=== PATIENT | female | born 1970 | race Caucasian/White ===

== ENCOUNTER 2018-07-22 08:14 | Day surgery (SDC) | payer OTHER ==
--- NOTE | 2018-07-21 13:41 | PREOPHP ---
DATE OF ADMISSION: 07/22/2018 HISTORY OF PRESENT ILLNESS: A 48-year-old female patient with a long history of recurrent middle ear infections seen in the office in 01/2018 and was noted to have cerumen impactions. These were remov ed. Bilateral otorrhea was noted at this time consistent with bilateral tympanic membrane perforatio n with possible cholesteatoma. The patient was treated with ear drops with resolution of otorrhea. Audiogram demonstrates bilateral conductive hearing loss. CAT scan of the temporal bones indicates p ossible cholesteatoma. The patient was now admitted to the hospital for corrective left ear surgery. MEDICATIONS: Metformin. MEDICAL CONDITIONS: Diabetes. ALLERGIES: NONE. PRIOR SURGERY: section. CHRONIC DISORDERS: None. HABITS: Alcohol, tobacco, recreational drugs: None. FAMILY HISTORY: Negative. REVIEW OF SYSTEMS: Negative. PHYSICAL EXAMINATION: GENERAL: Well-developed, well-nourished female patient in no acute distress. HEENT: Head is normocephalic. No masses or deformities. Ears and tympanic membranes: Bilateral att ic retraction, cholesteatomas noted. Nose is clear. Oropharynx is clear. NECK: No masses or adenopathy. CHEST: Clear to P and A. HEART: Regular sinus rhythm without murmur. ABDOMEN: Soft. Bowel sounds are normal. No masses or megaly. EXTREMITIES: Full range of motion without deformity. NEUROLOGIC: Physiologic. PELVIC AND RECTAL: Not done. IMPRESSION: Chronic left otitis media with probable cholesteatoma. RECOMMENDATIONS: Admit for surgery. The risks, alternatives and expectations of surgery have been d iscussed with the patient including the possibilities of further hearing loss, facial nerve injury, v ertigo and the possible need for revision surgery. Dictated By: NOLVIA FLORES MD [place]/NTS Conf#: [id number] DID#: [id number]
[2018-07-22] VITALS (9 sets, daily range): BP systolic 104–129; BP diastolic 60–69; PULSE 60–74; RESP 12–18; Ht 165.1 cm; Wt 104.6 kg
[~2018-07-22] VITALS: Ht 165.1 cm; Wt 104.6 kg
[2018-07-22] MEDS ORDERED: SIMV40TA2 PO (09:35)
[2018-07-22] MEDS ORDERED: METF500T24 PO (09:35)
[2018-07-22] MEDS ORDERED: PANT40TA3 PO (09:36)
[2018-07-22] MEDS ORDERED: SEVOFLURANE 15 MIN ONE (10:00)
[2018-07-22] MEDS ORDERED: GLYCOPYRROLATE 0.4 MG INJ ONE ×2 (10:00→11:21)
--- NOTE | 2018-07-22 10:15 | PREAC ---
Date/Time of Note Date/Time of Note DATE: 07/22/18 TIME: 10:14 Anesthesia Eval and Record Evaluation Time Pre-Procedure Interview DATE: 07/22/18 TIME: 10:14 Age 48 Sex female NPO: 8 hrs Preoperative diagnosis left mastoiditis, left perforated ear drum Planned procedure left mastoidectomy, left tympanoplasty Past Medical History Past Medical History: Includes Endo: Diabetes GI: Obesity Surgery & Anesthesia Issues No known issue Meds Anticoagulation: No Beta Tal within 24 hr: No Reason Beta Tal not given: Pt. not on B-Tal Reported Medications Pantoprazole* (Protonix*) 40 Mg Tablet.dr, 40 MG PO DAILY, TAB 07/22/18 Simvastatin* (Zocor*) 40 Mg Tablet, 40 MG PO QHS, #30 TAB 07/22/18 Metformin Hcl* (Metformin Hcl*) 500 Mg Tablet, 500 MG PO WITH BREAKFAST DINNE, #60 TAB 07/22/18 Meds reviewed: Yes Allergies Coded Allergies: No Known Allergy (Unverified , 07/22/18) Allergies Reviewed: Yes Labs/Studies Labs Reviewed: Reviewed by anesthesiologist test: Negative Pre-procedure Exam Last vitals Vital Signs Date Temp Pulse Resp B/P (MAP) Pulse Ox O2 O2 Flow FiO2 Time Delivery Rate 07/22/18 97.8 74 16 129/ 98 09:00 Airway: Adequate mouth opening, Adequate thyromental dist Mallampati: Mallampati II Teeth: Normal Lung: Normal Heart: Normal ASA Physical Status ASA physical status: 2 Emergency: None Planned Anesthetic General/MAC: LMA Planned Pain Management Parenteral pain med Pre-operative Attestations Prior to commencing anesthesia and surgery, the patient was re-evaluated, there was verification of: *The patient's identity *The results of appropriate recent lab work and preoperative vital signs *The above evaluation not changing prior to induction *Anesthetic plan, risk benefits, alternative and complications discussed with patient/family; questions answered; patient/family understands, accepts and wishes to proceed. TERA BROWN Jul 22, 2018 10:15
[2018-07-22] MEDS ORDERED: ROCURONIUM 50 MG INJ ONE (10:18)
[2018-07-22] MEDS ORDERED: PROPOFOL 100 ML ONE (10:18)
[2018-07-22] MEDS ORDERED: LIDOCAINE 1%/EPI (1:100,000) (MDV) 20 ML ONE (10:20)
[2018-07-22] MEDS ORDERED: NEOMYC/POLYMYX/BACIT 30 GM OINT ONE (10:20)
[2018-07-22] MEDS ORDERED: DEXAMETHASONE 4 MG/ML 5 ML INJ ONE (10:49)
[2018-07-22] MEDS ORDERED: ONDANSETRON 4 MG INJ ONE (10:49)
[2018-07-22] MEDS ORDERED: EPINEPHrine 1 MG INJ ONE (10:57)
[2018-07-22] MEDS ORDERED: GELATIN SIZE 100 SPONGE ONE (11:05)
[2018-07-22] MEDS ORDERED: NEOSTIGMINE 10 MG INJ ONE (11:21)
--- NOTE | 2018-07-22 11:37 | SIPON ---
Date/Time of Note Date/Time of Note DATE: 07/22/18 TIME: 11:36 Operative Report Preoperative Diagnosis chronic l mastoid Postoperative Diagnosis same Operation/Procedure Performed l mastoid tymp Surgeon marianne signature line appeals assistant none Anesthesia: general Estimated blood loss: minimal Transfusion Required none Specimen none Grafts/Implants none Complications none NOLVIA FLORES MD Jul 22, 2018 11:37
--- NOTE | 2018-07-22 11:40 | PAC ---
Date/Time of Note Date/Time of Note DATE: 07/22/18 TIME: 11:40 Post-Anesthesia Notes Post-Anesthesia Note Last documented vital signs Vital Signs Date Temp Pulse Resp B/P (MAP) Pulse Ox O2 O2 Flow FiO2 Time Delivery Rate 07/22/18 97.8 74 16 129/ 98 1142 Activity: WNL Respiratory function: WNL Cardiovascular function: WNL Mental status: Baseline Pain reasonably controlled: Yes Hydration appropriate: Yes Nausea/Vomiting absent: Yes TERA BROWN Jul 22, 2018 11:40
[2018-07-22] MEDS ORDERED: HYDROmorphONE 1 MG/5 ML IV SYRINGE IV PRN ×3 (12:00)
[2018-07-22] MEDS ORDERED: ALBUTEROL 0.083% (NEB) 2.5 MG/3 ML AMP HHN PRN (12:00)
[2018-07-22] MEDS ORDERED: KETOROLAC 30 MG INJ IV PRN (12:00)
[2018-07-22] MEDS ORDERED: FENTAnyl 50 MCG/ML VIAL IV PRN ×3 (12:00)
[2018-07-22] MEDS ORDERED: METOCLOPRAMIDE 10 MG INJ IV PRN (12:00)
[2018-07-22] MEDS ORDERED: DIPHENHYDRAMINE 50 MG INJ IV PRN (12:00)
[2018-07-22] MEDS ORDERED: ONDANSETRON 4 MG INJ IV PRN (12:00)
[2018-07-22] MEDS ORDERED: HYDROCODONE/APAP (7.5/325) TAB PO PRN (12:00)
[2018-07-22] MEDS ORDERED: LABETALOL HCL 20MG INJ IV PRN (12:00)
[2018-07-22] MEDS ORDERED: EPHEDrine SULFATE 50 MG/5 ML SYG IV PRN (12:00)
[2018-07-22] MEDS ORDERED: hydrALAzine 20 MG INJ IV PRN (12:00)
[2018-07-22] MEDS ORDERED: OXYCODONE/ACETAMINOPHEN (5/325) TAB PO PRN ×2 (12:00)
[2018-07-22] MEDS ORDERED: MEPERIDINE 25 MG INJ IV PRN (12:00)
--- NOTE | 2018-07-22 15:03 | OPR ---
DATE OF OPERATION: 07/22/2018 PREOPERATIVE DIAGNOSES: Left otitis perforata with cholesteatoma. POSTOPERATIVE DIAGNOSES: Left otitis perforata with cholesteatoma. PROCEDURE PERFORMED: Left mastoidectomy with tympanoplasty. OPERATION: The patient was brought to the operating room under parenteral sedation, general anesthes ia by LMA. Left ear was prepped and draped in the usual manner and examined with a Ze[employer] operating m icroscope. Four quadrant ear canal blocks were placed using Xylocaine 1% epinephrine 1:100,000 injec table. There was a shallow posterior superior attic retraction pocket filled with squamous debris. There was an anterior inferior subtotal tympanic membrane perforation noted. Using the suction, the retraction pocket was suctioned clean. Using the mastoidectomy drill and the 1 mm mihir round bur, the scutum was gradually removed to exteriorize the retraction pocket. The ossicular chain was not visualized at this time; however the retraction pocket was clean and had been marsupialized. Followi ng this, the margins of the tympanic membrane perforation were debrided with a Handy needle and the m iddle ear was filled with dry Gelfoam. An incision was then made in the posterior tragus and tragal perichondrium was elevated and removed and set aside for later use as a graft. Incision was closed w ith 5-0 silk suture. The graft was then brought into the operative field and placed as a medial judie t covering all margins of the perforation and supported by the Gelfoam in the middle ear. The ear ca nal was then filled with dry Gelfoam. A light cotton dressing was applied and the procedure terminat ed. The patient awakened in the operating room and returned to recovery in excellent condition. ESTIMATED BLOOD LOSS: Nil. COMPLICATIONS: None. Dictated By: NOLVIA FLORES MD SC/NTS Conf#: [id number] DID#: [id number]
== END 2018-07-22 13:34 | disposition home or self-care (01) ==
LOC: SDS 08:14
PROVIDERS: ATTEND Otolaryngology Otolaryngology/Facial Plastic Surgery
DX: H66.92 Otitis media, unspecified, left ear (principal); H71.22 Cholesteatoma of mastoid, left ear; E11.9 Type 2 diabetes mellitus without complications
CPT/HCPCS: 69641; 82962; 84703; J0171; J1100; J2405; J2710; J3010; Z7512; Z7610